=== PATIENT | male | born 1950 | race Caucasian/White ===

== ENCOUNTER 2023-02-27 10:59 | Emergency (ER) | payer OTHER ==
[~2023-02-27] VITALS: Ht 170.2 cm; Wt 56.2 kg
[2023-02-27 11:00] VITALS: BP_SYST 147; PULSE 99; RESP 18; TEMP 99.8; O2SAT 99
[2023-02-27 11:50] LABS: ANION GAP 8 (5-15); CARBON DIOXIDE 24 mmol/L (23-29); CHLORIDE 101 mmol/L (98-107); CREATININE 1.53 mg/dL (0.55-1.30); GLUCOSE 127 mg/dL (74-106); HEMATOCRIT 42.1 % (36-54); HEMOGLOBIN 13.7 g/dL (14.0-18.0); MEAN CORPUSCULAR HEMOGLOBIN 32 pg (27-31); MEAN CORPUSCULAR HGB CONC 33 % (32-36); MEAN CORPUSCULAR VOLUME 98 fL (79.0-98.0); PLATELET COUNT (AUTO) 174 K/uL (130-430); POTASSIUM 3.6 mmol/L (3.5-5.1); RED CELL DISTRIBUTION WIDTH 13.8 % (9.0-15.0); SODIUM SERUM 133 mmol/L (136-145); UREA NITROGEN, BLOOD 19 mg/dL (8-21); WHITE BLOOD COUNT (AUTO) 15.9 K/uL (4.8-10.8)
[2023-02-27 11:53] LABS: COVID19 ANTIGEN SOFIA FIA NEGATIVE (NEGATIVE)
[2023-02-27 11:55] LABS: INFLUENZA TYPE A Negative (NEGATIVE)
[2023-02-27 12:18] LABS: INFLUENZA TYPE B POSITIVE (NEGATIVE)
[2023-02-27 12:24] LABS: ALANINE AMINOTRANSFERASE 20 U/L (12-78); ALBUMIN 3.5 g/dL (3.4-4.8); ASPARTATE AMINOTRANSFERASE 12 U/L (10-37); TOTAL PROTEIN, SERUM 7.2 g/dL (6.4-8.3)
[2023-02-27 12:27] LABS: INR 1.1 (0.80-1.20)
[2023-02-27 12:36] LABS: ATYPICAL LYMPHOCYTES % 10 % (0-0); BAND % (MANUAL) 2 % (0-6); MONOCYTES % (MANUAL) 3 % (0-11)
[2023-02-27 12:38] LABS: LYMPHOCYTES % (MANUAL) 24 % (20-46); PLATELET ESTIMATE ADEQUATE (ADEQUATE)
[2023-02-27] MEDS ORDERED: IBUP-1971 PO (13:20)
[2023-02-27] MEDS ORDERED: OSEL75CA PO (13:20)
[2023-02-27] MEDS ORDERED: ALBMDI INH (13:20)
[2023-02-27 13:30] VITALS: BP_SYST 147; PULSE 99; RESP 18; TEMP 99.8; O2SAT 99
== END 2023-02-27 13:31 | disposition home or self-care (01) ==
LOC: SED 10:59
DX: J10.1 Influenza due to other identified influenza virus with other respiratory manifestations (principal); Z20.822 Contact with and (suspected) exposure to COVID-19; Z79.899 Other long term (current) drug therapy
CPT/HCPCS: 36415; 71045; 80053; 83605; 83880; 84484; 85007; 85027; 85610-TC; 85730-TC; 93005; 99285